=== PATIENT | male | born 1970 | race Caucasian/White ===

== ENCOUNTER 2016-10-19 07:03 | Emergency (ER) | payer OTHER ==
[~2016-10-19] VITALS: Ht 180.3 cm; Wt 86.0 kg
[2016-10-19 07:07] VITALS: TEMP 36.3; Ht 180.3 cm; Wt 86.0 kg
[2016-10-19] MEDS ORDERED: ONDANSETRON INJ 2 MG/ML 2 ML VIAL IV STA (07:23)
[2016-10-19] MEDS ORDERED: SODIUM CHLORIDE 0.9% 1000ML 1,000 ML IV STA (07:23)
--- NOTE | 2016-10-19 07:29 | EMERGENCY ROOM VISIT NOTE ---
History First contact with patient: 07:12 Chief Complaint: OTHER COMPLAINT Stated Complaint: DAY 6 OF PURE WATER History of Present Illness The patient is a 46 year old male who presents to the Emergency Room with complaints of perianal cyst. He also complains of nausea, vomiting and diarrhea which is chronic for him secondary to his HIV medications. The patient states that approximately 6 weeks ago he had a perianal cyst. He was on Cipro and it resolved. He states he feels another one developing. He states that he has had more severe diarrhea over the last 6 days. 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 He denies any fevers. He denies any pain. He denies any earache, sore throat, cough. He denies any pain in his chest or trouble breathing. He denies any abdominal pain. He denies any urinary symptoms. Review of Systems A 10 system review of systems was completed with positives and pertinent negatives listed in the HPI. Past Medical/Surgical History Medical Problems: (1) HIV disease (2) PML (progressive multifocal leukoencephalopathy) Social History Smoking Status: Current Every Day Smoker Occupation Status: employed Current/Historical Medications Scheduled Amitriptyline HCl (Amitriptyline HCl), 300 MG PO HS Ciprofloxacin Hcl (Cipro), 500 MG PO BID Darunavir Ethanolate (Prezista), 600 MG PO Q12 Dicyclomine Hcl (Dicyclomine Hcl), 1 TAB PO BID Disulfiram (Disulfiram), 500 MG PO QAM Emtricitabine/Temofovir (Truvada 200/300MG), 1 TAB PO DAILY Maraviroc (Selzentry), 150 MG PO DAILY Ondasetron Odt (Zofran Odt), 4 MG SL Q6H Ritonavir (Norvir), 100 TAB PO BID Tadalafil (Cialis), 10 MG PO UD Venlafaxine Hcl (Venlafaxine Extended Rel), 37.5 MG PO DAILY Scheduled PRN Kxwrqkyeky-Eqzebuqahmvpl-Aunpm (Fioricet), 1 CAP PO DIRECTED PRN for Headache Diphenoxylate/Atropine (Lomotil), 1 TAB PO QID PRN for Diarrhea Hydrocodon/Acetaminophen 5MG/300MG (Vicodin (5MG/300MG)), 1 TAB PO Q6H PRN for Pain Allergies Coded Allergies: Sulfa Antibiotics (Unverified Allergy, Unknown, anaphylaxis, 10/19/16) Physical Exam Vital Signs Date Time Temp Pulse Resp B/P (MAP) Pulse Ox O2 Delivery O2 Flow Rate FiO2 10/19/16 10:29 78 18 124/64 96 10/19/16 09:05 91 19 119/91 95 Room Air 10/19/16 07:07 36.3 74 18 131/126 97 Room Air Physical Exam VITALS: Vitals are noted on the nurse's note and reviewed by myself. Vital signs stable. The patient is afebrile. GENERAL: This is a 46-year-old male, in no acute distress, nondiaphoretic, well- developed well-nourished. SKIN: The skin was without rashes, erythema, edema, or bruising. There is no tenting of the skin. Capillary reflex less than 2 seconds. HEAD: Normocephalic atraumatic. EARS: The external ears are normal in appearance. EYES: Pupils equal round and reactive to light and accommodation. Conjunctivae without injection, sclerae without icterus. Extraocular movements intact. NOSE: Patent, turbinates without inflammation or discharge. MOUTH: Mucous membranes moist. Tonsils are not enlarged. Pharynx without erythema or exudate. Uvula midline. Airway patent. Tongue does not deviate. NECK: Supple without nuchal rigidity. No lymphadenopathy. No thyromegaly. Cervical spine is nontender. No JVD. HEART: Regular rate and rhythm without murmurs gallops or rubs. LUNGS: Clear to auscultation bilaterally without wheezes, rales or rhonchi. pNo retractions or accessory muscle use. ABDOMEN: Positive bowel sounds x 4, hyperactive. Soft, nontender, without masses or organomegaly. RECTAL: There are multiple scabbed and some open areas across the buttocks and the proximal posterior legs. There is a small area of tenderness in the perirectal area at approximately 2:00. There is no significant fluctuance. There is no obvious abscess at this time. MUSCULOSKELETAL: No muscle atrophy, erythema, or edema noted. Full range of motion in all extremities. Strength Normal gait. Strength 5/5 throughout. NEURO: Patient was alert and oriented to person place and time. No focal neurological deficits. Medical Decision & Procedures Laboratory Results 10/19/16 07:30 Red Blood Count 5.54, Mean Corpuscular Volume 93.9, Mean Corpuscular Hemoglobin 34.1, Mean Corpuscular Hemoglobin Concent 36.3, Mean Platelet Volume 10.6 10/19/16 07:30 Test 10/19/16 07:30 10/19/16 08:40 10/19/16 10:00 White Blood Count 9.95 K/uL (4.8-10.8) Red Blood Count 5.54 M/uL (4.7-6.1) Hemoglobin 18.9 g/dL (14.0-18.0) Hematocrit 52.0 % (42-52) Mean Corpuscular Volume 93.9 fL (80-100) Mean Corpuscular Hemoglobin 34.1 pg (25-34) Mean Corpuscular Hemoglobin Concent 36.3 g/dl (32-36) Platelet Count 167 K/uL (130-400) Mean Platelet Volume 10.6 fL (7.4-10.4) RDW Standard Deviation 47.5 fL (36.4-46.3) RDW Coefficient of Variation 14.2 % (11.5-14.5) Neutrophils % (Manual) 58.2 % Lymphocytes % (Manual) 17.4 % Variant Lymphocytes % (manual) 11.3 % Monocytes % (Manual) 9.6 % Eosinophils % (Manual) 3.5 % Neutrophils # (Manual) 5.79 K/uL (1.4-6.5) Total Absolute Neutrophils 5.79 K/uL (1.4-6.5) Lymphocytes # (Manual) 1.73 K/uL (1.2-3.4) Absolute Variant Lymphocytes 1.12 K/uL Total Absolute Lymphocytes 2.86 K/uL (1.2-3.4) Monocytes # (Manual) 0.96 K/uL (0.11-0.59) Eosinophils # (Manual) 0.35 K/uL (0-0.5) Large Platelets 1+ Anion Gap 9.0 mmol/L (3-11) Est Creatinine Clear Calc Drug Dose 81.0 ml/min Estimated GFR () 83.0 Estimated GFR (Non- 71.6 BUN/Creatinine Ratio 9.2 (10-20) Calcium Level 7.9 mg/dl (8.5-10.1) Magnesium Level 2.2 mg/dl (1.8-2.4) Total Bilirubin 0.3 mg/dl (0.2-1) Aspartate Amino Transf (AST/SGOT) 42 U/L (15-37) Alanine Aminotransferase (ALT/SGPT) 43 U/L (12-78) Alkaline Phosphatase 81 U/L (45-117) Total Protein 7.2 gm/dl (6.4-8.2) Albumin 3.2 gm/dl (3.4-5.0) Globulin 4.0 gm/dl (2.5-4.0) Albumin/Globulin Ratio 0.8 (0.9-2) Lipase 107 U/L (73-393) Urine Color DK YELLOW Urine Appearance CLEAR (CLEAR) Urine pH 5.5 (4.5-7.5) Urine Specific [place] 1.017 (1.000-1.030) Urine Protein NEG (NEG) Urine Glucose (UA) NEG (NEG) Urine Ketones NEG (NEG) Urine Occult Blood NEG (NEG) Urine Nitrite NEG (NEG) Urine Bilirubin NEG (NEG) Urine Urobilinogen NEG (NEG) Urine Leukocyte Esterase NEG (NEG) Medications Administered Medications (Trade) Dose Ordered Sig/Cynthia Route Start Time Stop Time Status Last Admin Dose Admin Sodium Chloride 1,000 ml @ 999 mls/hr Q1H1M STAT IV 10/19/16 07:23 10/19/16 08:23 DC 10/19/16 07:42 999 MLS/HR Ondansetron HCl (Zofran Inj) 4 mg NOW STAT IV 10/19/16 07:23 10/19/16 07:25 DC 10/19/16 07:42 4 MG Potassium Chloride (Klor-Con M10) 20 meq NOW STAT PO 10/19/16 08:24 10/19/16 08:25 DC 10/19/16 08:24 20 MEQ ED Course The patient was seen and examined. Previous visits were reviewed. The patient does not have fever or leukocytosis. He is hypokalemic with potassium 3.0. BUN /creatinine creatinine are within normal limits. Urinalysis is negative. Stool was negative for C. difficile. Remaining still studies are pending at this time. The patient was given 20 mEq Kdur He was hydrated with normal saline He was given 4 mg IV Zofran The patient presents to the emergency department with nausea, vomiting and diarrhea. He initially states that the nausea, vomiting and diarrhea is chronic for him and related to his HIV medications. He then stated that over the last several days the diarrhea has been worse. He also states that he believes he is developing another perianal cyst. On examination, there is no evidence for fluctuance or obvious abscess at this time. The patient does have multiple excoriated open lesions on his buttocks and posterior upper legs. The patient states that Cipro is what he takes for the cysts. He will be given a prescription for Cipro. He also requests something for nausea and something for the GI distress. He was given prescriptions for Zofran and dicyclomine. He was advised that we will contact him if the stool cultures indicate the need for change in treatment. He should return to the ER with any worsening symptoms. The case was discussed with Dr. Ventura who agrees with the assessment and treatment plan. Medical Decision DIFFERENTIAL DIAGNOSIS: Hepatitis, cholecystitis, cholangitis, biliary colic, pancreatitis, pneumonia, subdiaphragmatic abscess, appendicitis, inguinal hernia , nephrolithiasis, inflammatory bowel disease, mesenteric adenitis, peptic ulcer disease, GERD, gastritis, pancreatitis, myocardial infarction, pericarditis, ruptured aortic aneurysm, appendicitis, gastroenteritis, bowel obstruction, splenic infarct, diverticulitis, mesenteric ischemia, metabolic, peritonitis, among others. Impression Primary Impression: Nausea vomiting and diarrhea Additional Impression: Perianal cellulitis Departure Information Dispostion Home / Self-Care Condition GOOD Prescriptions Ciprofloxacin Hcl (CIPRO) 500 Mg Tab 500 MG PO BID for 7 Days, #14 TAB Prov: Frances Alcantara PA-C 10/19/16 Ondasetron Odt (ZOFRAN ODT) 4 Mg Tab 4 MG SL Q6H for Nausea, #10 TAB Prov: Frances Alcantara PA-C 10/19/16 Dicyclomine Hcl (DICYCLOMINE HCL) 20 Mg Tab 1 TAB PO BID for 10 Days, #20 TAB 11 Refills Prov: Frances Alcantara PA-C 10/19/16 Referrals No Doctor, Assigned (PCP) Patient Instructions Diarrhea, [facility] Additional Instructions Dicyclomine as prescribed, as needed for cramping and diarrhea Zofran as prescribed, as needed for nausea Cipro as prescribed for infection. Return with any worsening swelling, redness , in the rectal area or fevers. Follow-up with the family doctor in 2-3 days for recheck. Problem Qualifiers
[2016-10-19 07:40] LABS: MEAN CELL VOLUME 93.9 fL (80-100); MEAN CORPUSCULAR HEMOGLOBIN 34.1 pg (25-34); MEAN CORPUSCULAR HGB CONC 36.3 g/dl (32-36); MEAN PLATELET VOLUME 10.6 fL (7.4-10.4); PLATELET COUNT 167 K/uL (130-400); RED BLOOD COUNT 5.54 M/uL (4.7-6.1); WHITE BLOOD COUNT 9.95 K/uL (4.8-10.8)
[2016-10-19] MEDS ORDERED: EFAV600T PO (07:41)
[2016-10-19] MEDS ORDERED: RITO100T PO (07:41)
[2016-10-19] MEDS ORDERED: SUSTIVA PO (07:41)
[2016-10-19] MEDS ORDERED: AMT100 PO (07:41)
[2016-10-19 07:58] LABS: BUN/CREATININE RATIO 9.2 (10-20); CALCIUM 7.9 mg/dl (8.5-10.1); CREATININE 1.2 mg/dl (0.60-1.40); MAGNESIUM 2.2 mg/dl (1.8-2.4)
[2016-10-19 08:02] LABS: ALB/GLOB RATIO 0.8 (0.9-2)
[2016-10-19 08:12] LABS: COMPLETE YES; EOSINOPHIL % 3.5 %; LARGE PLATELETS 1+; LYMPH ABS # 1.73 K/uL (1.2-3.4); LYMPHOCYTE % 17.4 %; NEUTROPHILS % 58.2 %; VARIANT LYM ABS # 1.12 K/uL; VARIANT LYMPHOCYTE % 11.3 %
[2016-10-19] MEDS ORDERED: POTASSIUM CHLORIDE 10 MEQ TABCR PO STA (08:24)
[2016-10-19] MEDS ORDERED: BUTA1CAP17 PO (08:44)
[2016-10-19] MEDS ORDERED: DIPH-416 PO (08:44)
[2016-10-19] MEDS ORDERED: VENL37.593 PO (08:44)
[2016-10-19] MEDS ORDERED: TADA10TA PO (08:44)
[2016-10-19] MEDS ORDERED: HYDR-3419 PO (08:44)
[2016-10-19] MEDS ORDERED: [UNRECOGNIZED DRUG - CODE] PO (08:44)
[2016-10-19] MEDS ORDERED: DISU1TAB PO (08:44)
[2016-10-19] MEDS ORDERED: TRVHP PO (08:44)
[2016-10-19] MEDS ORDERED: DARU600T2 PO (08:44)
[2016-10-19 08:51] LABS: URINE APPEARANCE CLEAR (CLEAR); URINE BILIRUBIN NEG (NEG); URINE COLOR DK YELLOW; URINE NITRITE NEG (NEG); URINE PH 5.5 (4.5-7.5); URINE SPECIFIC GRAVITY 1.017 (1.000-1.030); UROBILINOGEN NEG (NEG); ZZUR CULT IF INDIC CLEAN CATCH NO
[2016-10-19 08:52] LABS: MANUAL MICROSCOPIC REQUIRED? NO; REVIEW REQ? NO
[2016-10-19] MEDS ORDERED: DICY20TA10 PO (09:51)
[2016-10-19] MEDS ORDERED: CIPR-255 PO (09:51)
[2016-10-19] MEDS ORDERED: ONDA4TAB10 SL (09:51)
[2016-10-19 10:29] VITALS: BP 124/64; PULSE 78; O2SAT 96
[2016-10-25 18:06] LABS: CRYPTOSPORIDIUM AG TC 37213 NOT DETECTED (NOT DETECTED); O&P GIARDIA AG NOT DETECTED (NOT DETECTED); O&P SOURCE OTHER-STOOL
== END 2016-10-19 10:30 | disposition home or self-care (01) ==
LOC: C.EDB 07:05 → C.EDA 10:30
DX: R11.2 Nausea with vomiting, unspecified (principal); R19.7 Diarrhea, unspecified; K61.0 Anal abscess; B20 Human immunodeficiency virus [HIV] disease; F17.200 Nicotine dependence, unspecified, uncomplicated; Z79.899 Other long term (current) drug therapy; Z88.2 Allergy status to sulfonamides